=== PATIENT | female | born 1950 | race Asian ===

== ENCOUNTER 2018-04-08 13:28 | Observation (INO) | payer MEDICARE, OTHER ==
[2018-04-08 15:02] LABS: ADD MAN DIFF? NO
[2018-04-08 15:03] LABS: BASOPHILS % 0.8 % (0.0-2.0); EOSINOPHILS # 0.2 10^3/ul (0.0-0.5); EOSINOPHILS % 3.7 % (0.0-7.0); HEMATOCRIT 38.9 % (37.0-47.0); HEMOGLOBIN 12.5 g/dl (12.0-16.0); LYMPHOCYTES # 1.5 10^3/ul (0.8-2.9); LYMPHOCYTES % 30.5 % (15.0-51.0); MEAN CORPUSCULAR HEMOGLOBIN 28.7 pg (29.0-33.0); MEAN CORPUSCULAR HGB CONC 32.1 g/dl (32.0-37.0); MEAN CORPUSCULAR VOLUME 89.4 fl (82.0-101.0); MEAN PLATELET VOLUME 8.9 fl (7.4-10.4); MONOCYTE # 0.5 10^3/ul (0.3-0.9); MONOCYTES % 9.2 % (0.0-11.0); NEUTROPHIL # 2.7 10^3/ul (1.6-7.5); NEUTROPHILS % 55.4 % (39.0-77.0); PLATELET COUNT 287 10^3/UL (140-415); RED BLOOD COUNT 4.35 10^6/ul (4.20-5.40); RED CELL DISTRIBUTION WIDTH 12.2 % (11.5-14.5)
[2018-04-08 15:03] LABS: WHITE BLOOD COUNT 4.9 10^3/ul (4.8-10.8)
[2018-04-08 15:28] LABS: ANION GAP 17 (8-16); BLOOD UREA NITROGEN 18 mg/dl (7-20); CALCIUM 9.6 mg/dl (8.4-10.2); CARBON DIOXIDE 24 mmol/L (21-31); CHLORIDE 106 mmol/L (97-110); CREATININE 0.53 mg/dl (0.44-1.00); GLUCOSE 100 mg/dl (70-220); POTASSIUM 4.2 mmol/L (3.5-5.1); SODIUM 143 mmol/L (135-144)
[2018-04-08 15:45] LABS: TROPONIN-I < 0.012 ng/ml (0.000-0.120)
[2018-04-08] MEDS ORDERED: ONDANSETRON 4 MG INJ IV (18:30)
[2018-04-08] MEDS ORDERED: BISACODYL (EC) 5 MG TAB PO (18:30)
[2018-04-08] MEDS ORDERED: LORAZEPAM 0.5 MG TAB PO (18:30)
[2018-04-08] MEDS ORDERED: NITROGLYCERIN (SL) 0.4 MG TAB SL (18:30)
[2018-04-08] MEDS ORDERED: LABETALOL HCL 20MG INJ IV (18:30)
[2018-04-08] MEDS ORDERED: NACL 0.9% 3 ML SYG IV (18:30)
[2018-04-08] MEDS ORDERED: DOCUSATE SODIUM 100 MG CAP PO (18:30)
[2018-04-08] MEDS ORDERED: MAGNESIUM HYDROXIDE 30ML CUP PO (18:30)
[2018-04-08] MEDS ORDERED: morphine 2 MG INJ IV (18:30)
[2018-04-08] MEDS: ASPIRIN 81 MG TAB PO (19:00)
[2018-04-08 19:02] LABS: CHOL/HDL RATIO 3.7 RATIO; HDL CHOLESTEROL 48 mg/dl (35-98); LDL CHOLESTEROL,CALCULATED 44 mg/dl; TRIGLYCERIDES 434 mg/dl (0-149)
[2018-04-08 19:02] LABS: CHOLESTEROL 179 mg/dl (100-200)
[2018-04-08 19:03] LABS: HEMOGLOBIN A1C 6.8 % (0-5.9)
[2018-04-08] MEDS: INSULIN GLARGINE [LANtus] 3 ML PEN SC (20:00)
[2018-04-08 20:37] LABS: CREATINE KINASE 49 IU/L (23-200)
[2018-04-08] MEDS: HYDROCODONE/APAP (5/325) TAB PO (20:47)
[2018-04-08] MEDS: PANTOPRAZOLE 40 MG INJ IV (20:47)
[2018-04-08 20:49] LABS: CK INDEX 0.4
[2018-04-08 20:56] LABS: CK-MB < 0.22 ng/ml (0.0-2.4); TROPONIN-I < 0.012 ng/ml (0.000-0.120)
[2018-04-08] MEDS ORDERED: ATORVASTATIN 20 MG TAB PO (21:00)
[2018-04-08] MEDS: ATORVASTATIN 20 MG TAB PO (21:00)
[2018-04-08] MEDS: SOD CHLORIDE 0.9% 100 ML (21:00)
[2018-04-08] MEDS: INSULIN ASPART [NOVOLOG] 3 ML PEN SC (21:00)
[2018-04-08] MEDS: IOHEXOL 100 ML (21:00)
[2018-04-08] MEDS: HEPARIN 5,000 UNIT/0.5 ML VIAL SC (22:00)
[2018-04-09] MEDS: ACCU-CHEK XX (02:00)
[2018-04-09 02:24] LABS: ADD MAN DIFF? NO
[2018-04-09 02:27] LABS: WHITE BLOOD COUNT 4.6 10^3/ul (4.8-10.8)
[2018-04-09 02:27] LABS: BASOPHIL # 0.1 10^3/ul (0.0-0.1); BASOPHILS % 1.1 % (0.0-2.0); EOSINOPHILS # 0.2 10^3/ul (0.0-0.5); EOSINOPHILS % 4.4 % (0.0-7.0); HEMATOCRIT 37.2 % (37.0-47.0); HEMOGLOBIN 11.9 g/dl (12.0-16.0); LYMPHOCYTES # 1.9 10^3/ul (0.8-2.9); LYMPHOCYTES % 40.6 % (15.0-51.0); MEAN CORPUSCULAR HEMOGLOBIN 28.3 pg (29.0-33.0); MEAN CORPUSCULAR VOLUME 88.6 fl (82.0-101.0); MEAN PLATELET VOLUME 8.8 fl (7.4-10.4); MONOCYTE # 0.4 10^3/ul (0.3-0.9); MONOCYTES % 9.6 % (0.0-11.0); NEUTROPHILS % 43.9 % (39.0-77.0); PLATELET COUNT 261 10^3/UL (140-415); RED CELL DISTRIBUTION WIDTH 12.2 % (11.5-14.5)
[2018-04-09 02:49] LABS: ALANINE AMINOTRANSFERASE 24 IU/L (13-69); ALBUMIN 3.9 g/dl (3.3-4.9); ALBUMIN/GLOBULIN RATIO 1.25; ALKALINE PHOSPHATASE 42 IU/L (42-121); ANION GAP 15 (8-16); ASPARTATE AMINO TRANSFERASE 19 IU/L (15-46); BILIRUBIN,INDIRECT 0.6 mg/dl (0-1.1); BILIRUBIN,TOTAL 0.6 mg/dl (0.2-1.3); BLOOD UREA NITROGEN 14 mg/dl (7-20); CALCIUM 9.4 mg/dl (8.4-10.2); CARBON DIOXIDE 26 mmol/L (21-31); CHLORIDE 104 mmol/L (97-110); CREATINE KINASE 51 IU/L (23-200); CREATININE 0.61 mg/dl (0.44-1.00); GLUCOSE 120 mg/dl (70-220); MAGNESIUM 2.1 mg/dl (1.7-2.5); POTASSIUM 4.3 mmol/L (3.5-5.1); SODIUM 141 mmol/L (135-144)
[2018-04-09 03:01] LABS: CK INDEX 0.6; CK-MB 0.29 ng/ml (0.0-2.4)
[2018-04-09 03:07] LABS: TROPONIN-I < 0.012 ng/ml (0.000-0.120)
[2018-04-09] MEDS: PANTOPRAZOLE 40 MG INJ IV (05:53)
[2018-04-09] MEDS: HEPARIN 5,000 UNIT/0.5 ML VIAL SC ×3 (05:53→22:49)
[2018-04-09] MEDS: INSULIN ASPART [NOVOLOG] 3 ML PEN SC ×7 (07:28→20:20)
[2018-04-09] MEDS: ASPIRIN 81 MG TAB PO (08:50)
[2018-04-09] MEDS: METOPROLOL (XL) 25 MG TAB PO (08:50)
[2018-04-09] MEDS: EZETIMIBE 10 MG TAB PO (08:50)
[2018-04-09] MEDS: LOSARTAN 50 MG TAB PO (08:51)
[2018-04-09] MEDS: ACETAMINOPHEN 325 MG TAB PO (08:59)
[2018-04-09] MEDS ORDERED: GLUCAGON 1 MG INJ IM (18:00)
[2018-04-09] MEDS ORDERED: GLUCOSE GEL 15 GRAM TUBE BUCCAL (18:00)
[2018-04-09] MEDS ORDERED: DEXTROSE 50% 50 ML SYRINGE IV ×2 (18:00)
[2018-04-09] MEDS ORDERED: GLUCOSE GEL 15 GRAM TUBE PO ×2 (18:00)
[2018-04-09] MEDS: ATORVASTATIN 20 MG TAB PO (20:20)
[2018-04-09] MEDS: INSULIN GLARGINE [LANtus] 3 ML PEN SC (20:23)
[2018-04-10] MEDS: ACCU-CHEK XX (02:30)
[2018-04-10] MEDS: PANTOPRAZOLE 40 MG INJ IV (05:34)
[2018-04-10] MEDS: HEPARIN 5,000 UNIT/0.5 ML VIAL SC ×2 (05:35→15:16)
[2018-04-10 07:44] LABS: ADD MAN DIFF? NO
[2018-04-10 07:54] LABS: WHITE BLOOD COUNT 6.5 10^3/ul (4.8-10.8)
[2018-04-10 07:54] LABS: BASOPHIL # 0.1 10^3/ul (0.0-0.1); BASOPHILS % 1.1 % (0.0-2.0); EOSINOPHILS # 0.2 10^3/ul (0.0-0.5); EOSINOPHILS % 3.5 % (0.0-7.0); HEMATOCRIT 40.4 % (37.0-47.0); HEMOGLOBIN 12.9 g/dl (12.0-16.0); LYMPHOCYTES # 2.4 10^3/ul (0.8-2.9); LYMPHOCYTES % 36.2 % (15.0-51.0); MEAN CORPUSCULAR HEMOGLOBIN 28.9 pg (29.0-33.0); MEAN CORPUSCULAR HGB CONC 31.9 g/dl (32.0-37.0); MEAN CORPUSCULAR VOLUME 90.4 fl (82.0-101.0); MEAN PLATELET VOLUME 8.9 fl (7.4-10.4); MONOCYTE # 0.4 10^3/ul (0.3-0.9); MONOCYTES % 6.3 % (0.0-11.0); NEUTROPHIL # 3.4 10^3/ul (1.6-7.5); NEUTROPHILS % 52.1 % (39.0-77.0); PLATELET COUNT 287 10^3/UL (140-415); RED BLOOD COUNT 4.47 10^6/ul (4.20-5.40); RED CELL DISTRIBUTION WIDTH 12.5 % (11.5-14.5)
[2018-04-10] MEDS: INSULIN ASPART [NOVOLOG] 3 ML PEN SC ×4 (08:00→13:27)
[2018-04-10 08:44] LABS: ANION GAP 17 (8-16); BLOOD UREA NITROGEN 22 mg/dl (7-20); CALCIUM 10.1 mg/dl (8.4-10.2); CARBON DIOXIDE 27 mmol/L (21-31); CHLORIDE 105 mmol/L (97-110); CREATININE 0.64 mg/dl (0.44-1.00); GLUCOSE 110 mg/dl (70-220); MAGNESIUM 2.1 mg/dl (1.7-2.5); PHOSPHORUS 5.9 mg/dl (2.5-4.9); POTASSIUM 4.5 mmol/L (3.5-5.1); SODIUM 144 mmol/L (135-144)
[2018-04-10] MEDS: ASPIRIN 325 MG TAB PO (08:53)
[2018-04-10] MEDS: EZETIMIBE 10 MG TAB PO (08:53)
[2018-04-10] MEDS: METOPROLOL (XL) 25 MG TAB PO (08:53)
[2018-04-10] MEDS: LOSARTAN 50 MG TAB PO (08:54)
[2018-04-10] MEDS ORDERED: ASPIRIN 81 MG TAB PO (09:00)
[2018-04-10] MEDS ORDERED: morphine LIQ (10 MG/5 ML) CUP PO (13:30)
== END 2018-04-10 17:46 | disposition home or self-care (01) ==
LOC: MS4 04-09 17:04 → E/R 13:28 → MS3 18:23
DX: R07.9 Chest pain, unspecified (principal); R20.0 Anesthesia of skin; E11.9 Type 2 diabetes mellitus without complications; I10 Essential (primary) hypertension; E78.5 Hyperlipidemia, unspecified; Z79.82 Long term (current) use of aspirin
CPT/HCPCS: 36415; 70450; 71045; 71275; 72125; 80048; 80053; 80061; 82550; 82553; 82962; 83036; 83735; 84100; 84484; 85025; 93005; 93306; 99217; 99285-25